=== PATIENT | male | born 1985 | race African-American/Black ===

== ENCOUNTER 2022-01-11 09:52 | Inpatient (IN) | payer OTHER ==
[2022-01-11] MEDS ORDERED: ACETAMINOPHEN 500 MG TABLET (FP) PO ONE (10:41)
[2022-01-11] MEDS ORDERED: ACETAMINOPHEN 325 MG TABLET (FP) ONE (11:00)
[2022-01-11] MEDS ORDERED: ASPIRIN 81 MG CHEWABLE TABLETS PO ONE (11:09)
[2022-01-11] MEDS ORDERED: HYDROCHLOROTHIAZIDE 25 MG TABLET (FP) PO ONE (11:26)
[2022-01-11 11:30] LABS: HEMATOCRIT 40.4 % (35.4-49); HEMOGLOBIN 13.5 GM/dL (11.7-16.9); LYMPH % 40.1 % (8-40); MCH 28.6 pg (25.7-33.7); MCHC 33.3 g/dl (32.0-35.9); MEAN CELL VOLUME 85.7 fl (80-96); MEAN PLT VOLUME 8.8 fl (7.5-11.1); MONO % 3.8 % (3.8-10.2); NEUT % 53.1 % (42.8-82.8); PLATELET COUNT 218 10^3/uL (134-434); RBC 4.71 M/mm3 (4.00-5.60); RDW 14.6 % (11.9-15.9); WHITE BLOOD COUNT 4.6 K/mm3 (4.0-10.0)
[2022-01-11] MEDS ORDERED: HYDROCHLOROTHIAZIDE 25 MG TABLET (FP) ONE (11:31)
[2022-01-11] MEDS ORDERED: ASPIRIN 81 MG CHEWABLE TABLETS ONE ×2 (11:35→11:36)
[2022-01-11 11:47] LABS: CHLORIDE 106 mmol/L (98-107); SODIUM 140 mmol/L (136-145)
[2022-01-11 11:48] LABS: CALCIUM 8.8 mg/dL (8.5-10.1)
[2022-01-11 11:49] LABS: ANION GAP 4 MMOL/L (8-16); BLOOD UREA NITROGEN 23.2 mg/dL (7-18); CO2 30 mmol/L (21-32); GLUCOSE,RANDOM 109 mg/dL (74-106)
[2022-01-11 11:52] LABS: CREATININE 1.7 mg/dL (0.55-1.3); SGOT/AST 43 U/L (15-37); SGPT/ALT 81 U/L (13-61)
[2022-01-11 11:54] LABS: BILIRUBIN,TOTAL 0.5 mg/dL (0.2-1); TOT PROT 7.3 g/dl (6.4-8.2)
[2022-01-11 11:55] LABS: ALK PHOS 76 U/L (45-117)
[2022-01-11] MEDS ORDERED: NITROGLYCERIN SUBLINGUAL 1/150 0.4 MG TAB SL ONE (12:05)
[2022-01-11] MEDS ORDERED: NITROGLYCERIN SUBLINGUAL 1/150 0.4 MG TAB ONE (12:16)
[2022-01-11] MEDS ORDERED: SODIUM CHLORIDE 0.9% 500 ML INFUS.BAG IV ONE (12:25)
[2022-01-11] MEDS ORDERED: HEPARIN NA (PORCINE) 5,000 UNITS/ML 1ML VIAL IVPUSH ONE (12:29)
[2022-01-11] MEDS ORDERED: HEPARIN NA (PORCINE) 5,000 UNITS/ML 1ML VIAL ONE (12:38)
[2022-01-11] MEDS ORDERED: HEPARIN INFUSION - 25,000 UNITS/500 ML INFUS.BAG IVPB ONE (12:38)
[2022-01-11] MEDS ORDERED: HEPARIN NA (PORCINE) 5,000 UNITS/ML 1ML VIAL IVPUSH PRN ×2 (12:45)
[2022-01-11 12:56] LABS: CHOLESTEROL 172 mg/dL (50-200); TRIGLYCERIDES 83 mg/dL (0-150)
[2022-01-11 12:57] LABS: LDL CHOLESTEROL (ONLY SJRH) 112 mg/dL (5-100)
[2022-01-11] MEDS: HEPARIN INFUSION - 25,000 UNITS/500 ML INFUS.BAG IVPB SCH (12:57)
[2022-01-11 12:59] LABS: HDL CHOLESTEROL 52 mg/dL (40-60)
[2022-01-11 13:00] LABS: N-TERMINAL BNP 5734.3 pg/ml (5-125)
[2022-01-11] MEDS ORDERED: NITROGLYCERIN 2% OINTMENT - 1GM PACKET TD ONE ×2 (13:12→13:13)
[2022-01-11 13:26] LABS: INR 1.01 (0.83-1.09); PROTHROMBIN TIME (PATIENT) 11.6 SEC (9.7-13.0)
[2022-01-11 13:29] LABS: ACTIVATED PTT 37.1 SECONDS (25.2-36.5)
[2022-01-11] MEDS ORDERED: LABETALOL HCL 5 MG/1 ML (100MG/20 ML VIAL) IVPUSH ONE ×2 (13:59→23:54)
[2022-01-11] MEDS ORDERED: CLOPIDOGREL BISULFATE 300 MG TABLET PO ONE (14:10)
[2022-01-11] MEDS ORDERED: CLOPIDOGREL BISULFATE 300 MG TABLET ONE (14:25)
[2022-01-11] MEDS ORDERED: hydrALAZINE HCL 25 MG TABLET (FP) ONE (14:25)
[2022-01-11] MEDS: ISOSORBIDE DINITRATE 10 MG TABLET PO SCH ×2 (14:33→19:10)
[2022-01-11] MEDS: hydrALAZINE HCL 25 MG TABLET (FP) PO SCH ×2 (14:34→21:18)
[2022-01-11] MEDS: NICOTINE 14 MG/24 HOURS TOPICAL PATCH TD SCH (18:51)
[2022-01-11] MEDS: SACUBITRIL/VALSARTAN 24 MG-26 MG TABLET PO SCH ×2 (18:53→21:18)
[2022-01-11 20:49] VITALS: BMI 27.1
[2022-01-11 21:12] LABS: EPI CELLS 5 /uL (0-25.1); HYALINE CASTS 1 /uL (0-3.1); PH,URINE 6.5 (5.0-8.0); URINE APPEARANCE CLEAR; URINE BACTERIA 59 /uL (0-1359); URINE BILIRUBIN NEGATIVE (NEGATIVE); URINE COLOR YELLOW; URINE GLUCOSE (UA) NEGATIVE (NEGATIVE); URINE KETONE NEGATIVE (NEGATIVE); URINE LEUK ESTERASE NEGATIVE (NEGATIVE); URINE NITRITE NEGATIVE (NEGATIVE); URINE PROTEIN 1+ (NEGATIVE); URINE RBC 4 /uL (0-23.9); URINE UROBILINOGEN 0.2 mg/dL (0.2-1.0); URINE WBC 4 /uL (0-25.8)
[2022-01-12] MEDS: hydrALAZINE HCL 25 MG TABLET (FP) PO SCH ×3 (05:45→21:25)
[2022-01-12 07:35] LABS: BASO % 0.8 % (0-2.0); EOS % 2.6 % (0-4.5); HEMATOCRIT 42.4 % (35.4-49); HEMOGLOBIN 14.3 GM/dL (11.7-16.9); LYMPH % 47.4 % (8-40); MCH 28.7 pg (25.7-33.7); MCHC 33.7 g/dl (32.0-35.9); MEAN PLT VOLUME 9.1 fl (7.5-11.1); MONO % 4.6 % (3.8-10.2); NEUT % 44.6 % (42.8-82.8); PLATELET COUNT 213 10^3/uL (134-434); RBC 4.98 M/mm3 (4.00-5.60); RDW 14.5 % (11.9-15.9); WHITE BLOOD COUNT 4.1 K/mm3 (4.0-10.0)
[2022-01-12 07:54] LABS: ALBUMIN 3.8 g/dl (3.4-5.0); BLOOD UREA NITROGEN 20.6 mg/dL (7-18); CALCIUM 9.2 mg/dL (8.5-10.1); MAGNESIUM 2.1 mg/dL (1.8-2.4)
[2022-01-12 07:57] LABS: CREATININE 1.7 mg/dL (0.55-1.3); PHOSPHOROUS 3.7 mg/dL (2.5-4.9)
[2022-01-12 07:59] LABS: BILIRUBIN,TOTAL 1.2 mg/dL (0.2-1); TOT PROT 6.9 g/dl (6.4-8.2)
[2022-01-12] MEDS: HEPARIN INFUSION - 25,000 UNITS/500 ML INFUS.BAG IVPB SCH ×2 (08:11→16:02)
[2022-01-12] MEDS: ISOSORBIDE DINITRATE 10 MG TABLET PO SCH (08:11)
[2022-01-12] MEDS: NICOTINE 14 MG/24 HOURS TOPICAL PATCH TD SCH (10:00)
[2022-01-12] MEDS: SACUBITRIL/VALSARTAN 24 MG-26 MG TABLET PO SCH ×2 (10:00→21:25)
[2022-01-12] MEDS: CLOPIDOGREL BISULFATE 75 MG TABLET (FP) PO SCH (10:00)
[2022-01-12 10:08] LABS: SARS-CoV-2 NAA Not Detected (Not Detected)
[2022-01-12] MEDS ORDERED: LABETALOL HCL 5 MG/1 ML (100MG/20 ML VIAL) IVPUSH PRN (10:41)
[2022-01-12] MEDS: ISOSORBIDE MONONITRATE 30 MG TAB.SR.24H (FP) PO SCH (12:34)
[2022-01-12] MEDS: LABETALOL HCL 5 MG/1 ML (100MG/20 ML VIAL) IVPUSH PRN (12:43)
[2022-01-12] MEDS ORDERED: LABETALOL HCL 5 MG/1 ML (100MG/20 ML VIAL) IVPUSH ONE (15:05)
[2022-01-12] MEDS: CARVEDILOL 6.25 MG TABLET (FP) PO SCH (21:25)
[2022-01-13] MEDS: LABETALOL HCL 5 MG/1 ML (100MG/20 ML VIAL) IVPUSH PRN ×2 (02:19→08:18)
[2022-01-13] MEDS: HEPARIN INFUSION - 25,000 UNITS/500 ML INFUS.BAG IVPB SCH (02:20)
[2022-01-13] MEDS: hydrALAZINE HCL 25 MG TABLET (FP) PO SCH (05:31)
[2022-01-13] MEDS ORDERED: hydrALAZINE HCL 25 MG TABLET (FP) PO SCH (06:51)
[2022-01-13 06:58] LABS: HEMATOCRIT 44.7 % (35.4-49); HEMOGLOBIN 14.8 GM/dL (11.7-16.9); MCH 28.3 pg (25.7-33.7); MCHC 33.1 g/dl (32.0-35.9); MEAN CELL VOLUME 85.6 fl (80-96); MEAN PLT VOLUME 9.3 fl (7.5-11.1); PLATELET COUNT 215 10^3/uL (134-434); RBC 5.22 M/mm3 (4.00-5.60); RDW 14.5 % (11.9-15.9); WHITE BLOOD COUNT 4.7 K/mm3 (4.0-10.0)
[2022-01-13 07:10] LABS: INR 1.15 (0.83-1.09); PROTHROMBIN TIME (PATIENT) 13.3 SEC (9.7-13.0)
[2022-01-13 07:10] LABS: ALBUMIN 3.6 g/dl (3.4-5.0); BLOOD UREA NITROGEN 23.6 mg/dL (7-18); MAGNESIUM 2.2 mg/dL (1.8-2.4)
[2022-01-13 07:11] LABS: CREATININE 1.9 mg/dL (0.55-1.3)
[2022-01-13 07:12] LABS: BILIRUBIN,TOTAL 0.6 mg/dL (0.2-1); TOT PROT 6.6 g/dl (6.4-8.2)
[2022-01-13 07:13] LABS: ACTIVATED PTT 56.9 SECONDS (25.2-36.5)
[2022-01-13] MEDS: CLOPIDOGREL BISULFATE 75 MG TABLET (FP) PO SCH (09:06)
[2022-01-13] MEDS: CARVEDILOL 6.25 MG TABLET (FP) PO SCH (09:06)
[2022-01-13] MEDS: ISOSORBIDE MONONITRATE 30 MG TAB.SR.24H (FP) PO SCH (09:06)
[2022-01-13] MEDS: SACUBITRIL/VALSARTAN 24 MG-26 MG TABLET PO SCH (09:07)
[2022-01-13] MEDS: NICOTINE 14 MG/24 HOURS TOPICAL PATCH TD SCH ×2 (09:07→09:08)
[2022-01-13] MEDS ORDERED: hydrALAZINE HCL 25 MG TABLET (FP) PO ONE ×2 (09:10→10:22)
[2022-01-13 09:19] VITALS: BP 182/102; PULSE 64
[2022-01-13 09:22] VITALS: TEMP 97.8
[2022-01-13] MEDS ORDERED: CARVEDILOL 12.5 MG TABLET (FP) PO SCH (10:09)
[2022-01-13] MEDS ORDERED: CARVEDILOL 6.25 MG TABLET (FP) PO ONE (10:22)
== END 2022-01-13 10:54 | disposition left against medical advice (07) | DRG 190 ==
LOC: JER 09:52 → JERBED 12:08 → J4W 20:19
PROVIDERS: ADMIT Internal Medicine; ATTEND Internal Medicine
DX: I21.4 Non-ST elevation (NSTEMI) myocardial infarction (principal); N17.9 Acute kidney failure, unspecified; I16.1 Hypertensive emergency; R73.03 Prediabetes; I11.0 Hypertensive heart disease with heart failure; I50.22 Chronic systolic (congestive) heart failure; E85.9 Amyloidosis, unspecified; Z91.19 Patient's noncompliance with other medical treatment and regimen; R80.9 Proteinuria, unspecified; I24.8 Other forms of acute ischemic heart disease; I27.20 Pulmonary hypertension, unspecified; E85.4 Organ-limited amyloidosis; J99 Respiratory disorders in diseases classified elsewhere
CPT/HCPCS: 36415; 71046-TC-FY; 76775-TC; 80053; 80061; 81003; 82550; 82553; 82570; 83036; 83735; 83880; 84100; 84156; 84300; 84443; 84484; 84540; 85025; 85027; 85379; 85610; 85730; 93005; 93010; 93306-TC; 93970-TC; 99285-25; C9803; J1644; U0003; U0005

== ENCOUNTER 2022-10-30 09:34 | Inpatient (IN) | payer OTHER ==
[2022-10-30] MEDS: NITROGLYCERIN 25MG/D5W 250ML 25 MG/250 ML ML IVPB SCH ×4 (09:45→22:34)
[2022-10-30] MEDS ORDERED: NITROGLYCERIN 2% OINTMENT - 1GM PACKET TD ONE (09:54)
[2022-10-30 10:05] LABS: BASO % 0.4 % (0-2.0); EOS % 0.1 % (0-4.5); HEMATOCRIT 43.5 % (35.4-49); HEMOGLOBIN 14.2 GM/dL (11.7-16.9); MCH 27.6 pg (25.7-33.7); MCHC 32.7 g/dl (32.0-35.9); MEAN CELL VOLUME 84.6 fl (80-96); MEAN PLT VOLUME 9.3 fl (7.5-11.1); MONO % 3.1 % (3.8-10.2); NEUT % 87.4 % (42.8-82.8); PLATELET COUNT 196 10^3/uL (134-434); RBC 5.14 M/mm3 (4.00-5.60); RDW 14.4 % (11.9-15.9); WHITE BLOOD COUNT 6.7 K/mm3 (4.0-10.0)
[2022-10-30 10:13] LABS: INR 1.34 (0.83-1.09); PROTHROMBIN TIME (PATIENT) 15.4 SEC (9.7-13.0)
[2022-10-30 10:15] LABS: ACTIVATED PTT 33.9 SECONDS (25.2-36.5)
[2022-10-30 10:24] LABS: CHLORIDE 102 mmol/L (98-107); SODIUM 136 mmol/L (136-145)
[2022-10-30 10:26] LABS: CALCIUM 9.3 mg/dL (8.5-10.1)
[2022-10-30 10:27] LABS: ALBUMIN 4.2 g/dl (3.4-5.0); ANION GAP 12 MMOL/L (8-16); BLOOD UREA NITROGEN 22.7 mg/dL (7-18); CO2 23 mmol/L (21-32); GLUCOSE,RANDOM 145 mg/dL (74-106); MAGNESIUM 1.9 mg/dL (1.8-2.4)
[2022-10-30 10:30] LABS: CREATININE 2.3 mg/dL (0.55-1.3); SGOT/AST 23 U/L (15-37); SGPT/ALT 33 U/L (13-61)
[2022-10-30 10:32] LABS: TOT PROT 7.9 g/dl (6.4-8.2)
[2022-10-30 10:33] LABS: ALK PHOS 72 U/L (45-117)
[2022-10-30 10:35] LABS: N-TERMINAL BNP 32789.6 pg/ml (5-125)
[2022-10-30] MEDS ORDERED: NITROGLYCERIN 25MG/D5W 250ML 25 MG/250 ML ML IVPB ONE (12:02)
[2022-10-30] MEDS ORDERED: ACETAMINOPHEN 325 MG TABLET (FP) PO PRN (12:49)
[2022-10-30 12:50] LABS: PHENCYCLIDINE,URINE NEGATIVE (NEGATIVE)
[2022-10-30 12:51] LABS: COCAINE, UR NEGATIVE (NEGATIVE); OPIATES, URI NEGATIVE (NEGATIVE); URINE BARBITURATES NEGATIVE (NEGATIVE)
[2022-10-30 12:59] LABS: METHADONE, UR NEGATIVE (NEGATIVE); URINE AMPHETAMINES POSITIVE (NEGATIVE); URINE BENZODIAZEPINES NEGATIVE (NEGATIVE)
[2022-10-30] MEDS ORDERED: AZITHROMYCIN IVPB 500 MG/250 ML BAG IVPB ONE (13:00)
[2022-10-30] MEDS ORDERED: CEFTRIAXONE 1 GM in DEXTROSE 5%-WATER - 50 ML IVPB ONE (13:00)
[2022-10-30] MEDS ORDERED: VANCOMYCIN 1 GM/200 ML PREMIX BAG (RESTRICTED TO ID ONLY) IVPB ONE (13:14)
[2022-10-30 13:20] VITALS: BMI 25.0
[2022-10-30] MEDS ORDERED: OSELTAMIVIR PHOSPHATE 75 MG CAPSULE PO ONE (14:15)
[2022-10-30] MEDS ORDERED: OSELTAMIVIR PHOSPHATE 45 MG CAPSULE PO SCH ×2 (15:00→22:00)
[2022-10-30] MEDS ORDERED: ALBUTEROL SO4 2.5/IPRATROPIUM 0.5 INH SOL 3 ML VIAL.NEB. NEB ONE (15:19)
[2022-10-30] MEDS ORDERED: ONDANSETRON 4 MG/2 ML VIAL IVPUSH PRN (16:35)
[2022-10-30] MEDS ORDERED: hydrALAZINE HCL 25 MG TABLET (FP) PO SCH (20:00)
[2022-10-30] MEDS ORDERED: CARVEDILOL 12.5 MG TABLET (FP) PO SCH (20:00)
[2022-10-30] MEDS: HEPARIN NA (PORCINE) 5,000 UNITS/ML 1ML VIAL SQ SCH (20:42)
[2022-10-30] MEDS: MUPIROCIN 2% TOPICAL OINTMENT FOR DECOLONIZATION NS SCH (21:21)
[2022-10-30] MEDS: CHLORHEXIDINE GLUCONATE 4% CLEANSER FOR DECOLONIZATION TP SCH (21:22)
[2022-10-30] MEDS: SACUBITRIL/VALSARTAN 97 MG-103 MG TABLET PO SCH (21:22)
[2022-10-30] MEDS ORDERED: LABETALOL HCL 5 MG/1 ML (100MG/20 ML VIAL) IVPUSH PRN (22:10)
[2022-10-30] MEDS ORDERED: ALPRAZolam 1 MG TABLET PO PRN (22:10)
[2022-10-30] MEDS: MELATONIN 5 MG TABLETS PO PRN (22:30)
[2022-10-31] MEDS: NITROGLYCERIN 25MG/D5W 250ML 25 MG/250 ML ML IVPB SCH ×3 (01:36→10:07)
[2022-10-31] MEDS: hydrALAZINE HCL 50 MG TABLET (FP) PO SCH ×3 (05:31→21:22)
[2022-10-31 07:11] LABS: HEMATOCRIT 37.8 % (35.4-49); HEMOGLOBIN 12.2 GM/dL (11.7-16.9); MCH 27.4 pg (25.7-33.7); MCHC 32.4 g/dl (32.0-35.9); MEAN CELL VOLUME 84.6 fl (80-96); MEAN PLT VOLUME 9.3 fl (7.5-11.1); PLATELET COUNT 150 10^3/uL (134-434); RBC 4.47 M/mm3 (4.00-5.60); RDW 13.7 % (11.9-15.9); WHITE BLOOD COUNT 3.3 K/mm3 (4.0-10.0)
[2022-10-31 07:31] LABS: CHLORIDE 97 mmol/L (98-107); SODIUM 135 mmol/L (136-145)
[2022-10-31 07:34] LABS: CALCIUM 8.6 mg/dL (8.5-10.1)
[2022-10-31 07:35] LABS: ALBUMIN 3.5 g/dl (3.4-5.0); ANION GAP 12 MMOL/L (8-16); BLOOD UREA NITROGEN 23.9 mg/dL (7-18); CO2 26 mmol/L (21-32); GLUCOSE,RANDOM 141 mg/dL (74-106); MAGNESIUM 1.7 mg/dL (1.8-2.4)
[2022-10-31 07:37] LABS: SGPT/ALT 46 U/L (13-61)
[2022-10-31 07:38] LABS: SGOT/AST 39 U/L (15-37)
[2022-10-31 07:39] LABS: BILIRUBIN,TOTAL 0.8 mg/dL (0.2-1); TOT PROT 6.5 g/dl (6.4-8.2)
[2022-10-31 07:40] LABS: ALK PHOS 59 U/L (45-117)
[2022-10-31] MEDS: OSELTAMIVIR PHOSPHATE 30 MG CAPSULE PO SCH ×2 (09:06→21:24)
[2022-10-31] MEDS: MUPIROCIN 2% TOPICAL OINTMENT FOR DECOLONIZATION NS SCH ×2 (10:07→21:24)
[2022-10-31] MEDS: CARVEDILOL 25 MG TABLET (FP) PO SCH ×2 (10:08→21:23)
[2022-10-31] MEDS: SACUBITRIL/VALSARTAN 97 MG-103 MG TABLET PO SCH ×2 (10:08→21:24)
[2022-10-31] MEDS: CEFTRIAXONE 1 GM in DEXTROSE 5%-WATER - 50 ML IVPB SCH (10:08)
[2022-10-31] MEDS: HEPARIN NA (PORCINE) 5,000 UNITS/ML 1ML VIAL SQ SCH ×2 (10:08→21:25)
[2022-10-31] MEDS: PANTOPRAZOLE 40 MG TABLET PO SCH (10:08)
[2022-10-31] MEDS: ISOSORBIDE MONONITRATE 60 MG TAB.SR.24H (FP) PO SCH (14:14)
[2022-10-31] MEDS: MELATONIN 5 MG TABLETS PO PRN (21:22)
[2022-10-31] MEDS: CHLORHEXIDINE GLUCONATE 4% CLEANSER FOR DECOLONIZATION TP SCH (21:25)
[2022-11-01 01:32] VITALS: TEMP 98.8
[2022-11-01] MEDS: hydrALAZINE HCL 50 MG TABLET (FP) PO SCH (05:46)
[2022-11-01 06:48] VITALS: RESP 16
[2022-11-01] MEDS: CARVEDILOL 25 MG TABLET (FP) PO SCH (09:42)
[2022-11-01] MEDS ORDERED: FUROSEMIDE 40 MG/4 ML INJECTABLE VIAL IVPUSH SCH (10:00)
[2022-11-01] MEDS: OSELTAMIVIR PHOSPHATE 30 MG CAPSULE PO SCH (10:00)
[2022-11-01] MEDS ORDERED: ASPIRIN 81 MG CHEWABLE TABLETS PO SCH (10:00)
[2022-11-01] MEDS: CEFTRIAXONE 1 GM in DEXTROSE 5%-WATER - 50 ML IVPB SCH (10:21)
[2022-11-01] MEDS: MUPIROCIN 2% TOPICAL OINTMENT FOR DECOLONIZATION NS SCH (10:21)
[2022-11-01] MEDS: HEPARIN NA (PORCINE) 5,000 UNITS/ML 1ML VIAL SQ SCH (10:21)
[2022-11-01] MEDS: PANTOPRAZOLE 40 MG TABLET PO SCH (10:21)
[2022-11-01] MEDS: ISOSORBIDE MONONITRATE 60 MG TAB.SR.24H (FP) PO SCH (10:21)
[2022-11-01] MEDS: SACUBITRIL/VALSARTAN 97 MG-103 MG TABLET PO SCH (10:21)
[2022-11-01 11:01] VITALS: BP 177/100; PULSE 56
[2022-11-01] MEDS ORDERED: CARVEDILOL 12.5 MG TABLET (FP) PO SCH (11:03)
[2022-11-01] MEDS ORDERED: hydrALAZINE HCL 50 MG TABLET (FP) PO SCH ×2 (11:07→11:17)
[2022-11-01 11:14] LABS: HEMATOCRIT 45.6 % (35.4-49); HEMOGLOBIN 14.9 GM/dL (11.7-16.9); MCH 27.5 pg (25.7-33.7); MCHC 32.6 g/dl (32.0-35.9); MEAN CELL VOLUME 84.4 fl (80-96); MEAN PLT VOLUME 9.5 fl (7.5-11.1); PLATELET COUNT 185 10^3/uL (134-434); RBC 5.41 M/mm3 (4.00-5.60); RDW 14.1 % (11.9-15.9); WHITE BLOOD COUNT 3.3 K/mm3 (4.0-10.0)
[2022-11-01 11:29] LABS: ALBUMIN 3.4 g/dl (3.4-5.0); BLOOD UREA NITROGEN 24.1 mg/dL (7-18); CALCIUM 8.6 mg/dL (8.5-10.1); MAGNESIUM 2.1 mg/dL (1.8-2.4)
[2022-11-01 11:33] LABS: PHOSPHOROUS 2.6 mg/dL (2.5-4.9)
[2022-11-01 11:35] LABS: BILIRUBIN,TOTAL 0.6 mg/dL (0.2-1); TOT PROT 6.9 g/dl (6.4-8.2)
[2022-11-01] MEDS ORDERED: ATORVASTATIN CA 40 MG TABLET (FP) PO SCH (22:00)
[2022-11-01] MEDS ORDERED: SACUBITRIL/VALSARTAN 24 MG-26 MG TABLET PO SCH (22:00)
== END 2022-11-01 13:20 | disposition left against medical advice (07) | DRG 199 ==
LOC: JER 09:34 → JERBED 12:06 → JICU 13:25
PROVIDERS: ADMIT Internal Medicine Pulmonary Disease; ATTEND Internal Medicine
DX: I16.1 Hypertensive emergency (principal); N17.9 Acute kidney failure, unspecified; J11.00 Influenza due to unidentified influenza virus with unspecified type of pneumonia; I21.4 Non-ST elevation (NSTEMI) myocardial infarction; J18.9 Pneumonia, unspecified organism; E87.1 Hypo-osmolality and hyponatremia; I42.0 Dilated cardiomyopathy; E85.89 Other amyloidosis; I13.0 Hypertensive heart and chronic kidney disease with heart failure and stage 1 through stage 4 chronic kidney disease, or unspecified chronic kidney disease; N18.9 Chronic kidney disease, unspecified; I50.43 Acute on chronic combined systolic (congestive) and diastolic (congestive) heart failure; E87.6 Hypokalemia; F19.10 Other psychoactive substance abuse, uncomplicated; F41.9 Anxiety disorder, unspecified
CPT/HCPCS: 0241U-QW; 36415; 71045-TC-FY; 71275-TC; 74174-TC; 80053; 80307; 82550; 82553; 82570; 82962; 83735; 83880; 84100; 84156; 84300; 84439; 84443; 84484; 85025; 85027; 85379; 85610; 85730; 87899; 93005; 93010; 99291; 99292; J1644; Q9967

== ENCOUNTER 2023-11-22 17:15 | Inpatient (IN) | payer OTHER ==
[2023-11-22] MEDS: NITROGLYCERIN 25MG/D5W 250ML 25 MG/250 ML ML IVPB SCH (18:24)
[2023-11-22 18:47] LABS: BASO % 0.8 % (0-2.0); EOS % 2.4 % (0-4.5); HEMATOCRIT 40.5 % (35.4-49); HEMOGLOBIN 13.3 GM/dL (11.7-16.9); LYMPH % 37.9 % (8-40); MCH 28.3 pg (25.7-33.7); MCHC 32.8 g/dl (32.0-35.9); MEAN CELL VOLUME 86.5 fl (80-96); MEAN PLT VOLUME 8.8 fl (7.5-11.1); NEUT % 53.9 % (42.8-82.8); PLATELET COUNT 270 10^3/uL (134-434); RBC 4.68 M/mm3 (4.00-5.60); RDW 15.3 % (11.9-15.9)
[2023-11-22 18:56] LABS: INR 1.2 (0.83-1.09); PROTHROMBIN TIME (PATIENT) 13.9 SEC (9.7-13.0)
[2023-11-22 19:00] LABS: POTASSIUM 4.8 mmol/L (3.5-5.1)
[2023-11-22 19:02] LABS: CALCIUM 8.2 mg/dL (8.5-10.1)
[2023-11-22 19:03] LABS: ALBUMIN 3.1 g/dl (3.4-5.0); BLOOD UREA NITROGEN 38.1 mg/dL (7-18); MAGNESIUM 2.2 mg/dL (1.8-2.4)
[2023-11-22 19:06] LABS: CREATININE 2.5 mg/dL (0.55-1.3)
[2023-11-22 19:07] LABS: BILIRUBIN,TOTAL 0.5 mg/dL (0.2-1)
[2023-11-22] MEDS ORDERED: CARVEDILOL 12.5 MG TABLET (FP) PO ONE (19:22)
[2023-11-22] MEDS ORDERED: hydrALAZINE HCL 50 MG TABLET (FP) PO ONE (19:22)
[2023-11-22] MEDS ORDERED: ASPIRIN 81 MG CHEWABLE TABLETS PO ONE (19:36)
[2023-11-22] MEDS ORDERED: FUROSEMIDE 40 MG/4 ML INJECTABLE VIAL IVPUSH ONE (19:37)
[2023-11-22] MEDS ORDERED: FUROSEMIDE 40 MG/4 ML INJECTABLE VIAL ONE (19:57)
[2023-11-22] MEDS ORDERED: CARVEDILOL 12.5 MG TABLET (FP) ONE (19:57)
[2023-11-22] MEDS ORDERED: ASPIRIN 81 MG CHEWABLE TABLETS ONE (19:57)
[2023-11-22] MEDS ORDERED: hydrALAZINE HCL 50 MG TABLET (FP) ONE (19:57)
[2023-11-22] MEDS ORDERED: hydrALAZINE HCL 25 MG TABLET (FP) PO SCH (23:15)
[2023-11-23] MEDS: HEPARIN NA (PORCINE) 5,000 UNITS/ML 1ML VIAL SQ SCH ×4 (00:43→21:13)
[2023-11-23 00:54] LABS: EPI CELLS 1 /uL (0-25.1); HYALINE CASTS 0 /uL (0-3.1); PH,URINE 6.5 (5.0-8.0); URINE APPEARANCE CLEAR; URINE BACTERIA 0 /uL (0-1359); URINE BILIRUBIN NEGATIVE (NEGATIVE); URINE COLOR YELLOW; URINE GLUCOSE (UA) TRACE (NEGATIVE); URINE KETONE NEGATIVE (NEGATIVE); URINE LEUK ESTERASE NEGATIVE (NEGATIVE); URINE NITRITE NEGATIVE (NEGATIVE); URINE PROTEIN 1+ (NEGATIVE); URINE RBC 11 /uL (0-23.9); URINE WBC 1 /uL (0-25.8)
[2023-11-23 01:15] LABS: POTASSIUM 3.7 mmol/L (3.5-5.1)
[2023-11-23 01:17] LABS: CALCIUM 8.6 mg/dL (8.5-10.1)
[2023-11-23 01:18] LABS: ALBUMIN 3.3 g/dl (3.4-5.0); BLOOD UREA NITROGEN 38.7 mg/dL (7-18); MAGNESIUM 1.7 mg/dL (1.8-2.4)
[2023-11-23 01:21] LABS: CREATININE 2.6 mg/dL (0.55-1.3); PHOSPHOROUS 3.8 mg/dL (2.5-4.9)
[2023-11-23 01:23] LABS: BILIRUBIN,TOTAL 0.5 mg/dL (0.2-1); TOT PROT 5.8 g/dl (6.4-8.2)
[2023-11-23] MEDS: MUPIROCIN 2% TOPICAL OINTMENT FOR DECOLONIZATION NS SCH ×3 (01:42→21:14)
[2023-11-23] MEDS: hydrALAZINE HCL 25 MG TABLET (FP) PO SCH ×4 (01:43→21:14)
[2023-11-23] MEDS ORDERED: MAGNESIUM SULFATE IN WATER 2 GM/50 ML IVPB IVPB ONE (06:53)
[2023-11-23 07:01] LABS: BASO % 0.7 % (0-2.0); HEMATOCRIT 33.6 % (35.4-49); HEMOGLOBIN 11.3 GM/dL (11.7-16.9); LYMPH % 44.7 % (8-40); MCH 28.7 pg (25.7-33.7); MCHC 33.5 g/dl (32.0-35.9); MEAN CELL VOLUME 85.7 fl (80-96); MEAN PLT VOLUME 8.7 fl (7.5-11.1); MONO % 5.8 % (3.8-10.2); NEUT % 45.8 % (42.8-82.8); PLATELET COUNT 231 10^3/uL (134-434); RBC 3.93 M/mm3 (4.00-5.60); RDW 14.7 % (11.9-15.9); WHITE BLOOD COUNT 4.4 K/mm3 (4.0-10.0)
[2023-11-23 07:14] LABS: POTASSIUM 3.6 mmol/L (3.5-5.1)
[2023-11-23 07:19] LABS: ALBUMIN 2.9 g/dl (3.4-5.0); BLOOD UREA NITROGEN 35.2 mg/dL (7-18); CALCIUM 7.9 mg/dL (8.5-10.1)
[2023-11-23 07:21] LABS: CREATININE 2.3 mg/dL (0.55-1.3)
[2023-11-23 07:24] LABS: BILIRUBIN,TOTAL 0.5 mg/dL (0.2-1); TOT PROT 5.4 g/dl (6.4-8.2)
[2023-11-23 07:27] LABS: N-TERMINAL BNP 10460.4 pg/ml (5-125)
[2023-11-23] MEDS: ISOSORBIDE MONONITRATE 30 MG TAB.SR.24H (FP) PO SCH ×2 (08:21→09:44)
[2023-11-23] MEDS: CARVEDILOL 25 MG TABLET (FP) PO SCH ×3 (08:21→21:14)
[2023-11-23] MEDS: ASPIRIN COATED 81 MG TABLET.EC PO SCH (09:51)
[2023-11-23] MEDS ORDERED: CARVEDILOL 12.5 MG TABLET (FP) PO SCH (10:00)
[2023-11-23] MEDS ORDERED: ISOSORBIDE MONONITRATE 60 MG TAB.SR.24H (FP) PO SCH (10:00)
[2023-11-23] MEDS ORDERED: FUROSEMIDE 40 MG/4 ML INJECTABLE VIAL IVPUSH ONE (10:10)
[2023-11-23] MEDS ORDERED: FUROSEMIDE 40 MG/4 ML INJECTABLE VIAL ONE (10:29)
[2023-11-23] MEDS: ATORVASTATIN CA 80 MG TABLET (FP) PO SCH (21:14)
[2023-11-23] MEDS: NITROGLYCERIN 25MG/D5W 250ML 25 MG/250 ML ML IVPB SCH (21:14)
[2023-11-23] MEDS: CHLORHEXIDINE GLUCONATE 4% CLEANSER FOR DECOLONIZATION TP SCH (21:15)
[2023-11-23] MEDS: ACETAMINOPHEN 325 MG TABLET (FP) PO PRN (22:16)
[2023-11-23] MEDS: MELATONIN 5 MG TABLETS PO SCH (22:55)
[2023-11-24] MEDS: HEPARIN NA (PORCINE) 5,000 UNITS/ML 1ML VIAL SQ SCH ×4 (06:00→22:08)
[2023-11-24] MEDS: hydrALAZINE HCL 25 MG TABLET (FP) PO SCH ×3 (06:00→22:07)
[2023-11-24 07:12] LABS: BASO % 0.4 % (0-2.0); EOS % 1.9 % (0-4.5); HEMATOCRIT 32.9 % (35.4-49); HEMOGLOBIN 10.9 GM/dL (11.7-16.9); LYMPH % 28.6 % (8-40); MCH 28.4 pg (25.7-33.7); MCHC 33.3 g/dl (32.0-35.9); MEAN CELL VOLUME 85.4 fl (80-96); MEAN PLT VOLUME 8.6 fl (7.5-11.1); NEUT % 62.1 % (42.8-82.8); PLATELET COUNT 231 10^3/uL (134-434); RBC 3.85 M/mm3 (4.00-5.60); RDW 14.9 % (11.9-15.9); WHITE BLOOD COUNT 5.5 K/mm3 (4.0-10.0)
[2023-11-24 07:26] LABS: POTASSIUM 3.7 mmol/L (3.5-5.1)
[2023-11-24 07:28] LABS: ALBUMIN 2.8 g/dl (3.4-5.0); BLOOD UREA NITROGEN 31.5 mg/dL (7-18); CALCIUM 8.2 mg/dL (8.5-10.1); MAGNESIUM 2.2 mg/dL (1.8-2.4)
[2023-11-24 07:31] LABS: CREATININE 2.3 mg/dL (0.55-1.3)
[2023-11-24 07:32] LABS: PHOSPHOROUS 3.5 mg/dL (2.5-4.9)
[2023-11-24 07:33] LABS: BILIRUBIN,TOTAL 0.4 mg/dL (0.2-1); TOT PROT 5.2 g/dl (6.4-8.2)
[2023-11-24] MEDS: ISOSORBIDE MONONITRATE 30 MG TAB.SR.24H (FP) PO SCH (09:22)
[2023-11-24] MEDS: ASPIRIN COATED 81 MG TABLET.EC PO SCH (09:22)
[2023-11-24] MEDS: CARVEDILOL 25 MG TABLET (FP) PO SCH ×2 (09:22→22:08)
[2023-11-24] MEDS: MUPIROCIN 2% TOPICAL OINTMENT FOR DECOLONIZATION NS SCH ×2 (09:23→22:07)
[2023-11-24] MEDS: NITROGLYCERIN 25MG/D5W 250ML 25 MG/250 ML ML IVPB SCH ×2 (09:49→21:50)
[2023-11-24] MEDS: SACUBITRIL/VALSARTAN 24 MG-26 MG TABLET PO SCH ×2 (14:27→22:08)
[2023-11-24 14:39] VITALS: BMI 26.4
[2023-11-24] MEDS ORDERED: hydrALAZINE HCL 20 MG/ML VIAL IVPUSH ONE (21:13)
[2023-11-24] MEDS ORDERED: MELATONIN 5 MG TABLETS PO SCH (22:00)
[2023-11-24] MEDS: ATORVASTATIN CA 80 MG TABLET (FP) PO SCH (22:08)
[2023-11-24] MEDS: CHLORHEXIDINE GLUCONATE 4% CLEANSER FOR DECOLONIZATION TP SCH (22:08)
[2023-11-24] MEDS: MELATONIN 5 MG TABLETS PO SCH (22:08)
[2023-11-24] MEDS ORDERED: hydrALAZINE HCL 50 MG TABLET (FP) PO SCH (22:28)
[2023-11-25] MEDS: NITROGLYCERIN 25MG/D5W 250ML 25 MG/250 ML ML IVPB SCH ×2 (02:15→05:36)
[2023-11-25] MEDS: ACETAMINOPHEN 325 MG TABLET (FP) PO PRN (02:34)
[2023-11-25] MEDS: HEPARIN NA (PORCINE) 5,000 UNITS/ML 1ML VIAL SQ SCH (05:36)
[2023-11-25 07:29] LABS: BASO % 0.7 % (0-2.0); EOS % 1.2 % (0-4.5); HEMATOCRIT 33.1 % (35.4-49); LYMPH % 26.4 % (8-40); MCH 28.5 pg (25.7-33.7); MCHC 33.2 g/dl (32.0-35.9); MEAN CELL VOLUME 85.9 fl (80-96); MEAN PLT VOLUME 8.8 fl (7.5-11.1); MONO % 7.4 % (3.8-10.2); NEUT % 64.3 % (42.8-82.8); PLATELET COUNT 237 10^3/uL (134-434); RBC 3.86 M/mm3 (4.00-5.60); WHITE BLOOD COUNT 5.4 K/mm3 (4.0-10.0)
[2023-11-25 07:47] LABS: POTASSIUM 4.1 mmol/L (3.5-5.1)
[2023-11-25 07:55] LABS: ALBUMIN 2.8 g/dl (3.4-5.0); BLOOD UREA NITROGEN 24.6 mg/dL (7-18); PHOSPHOROUS 2.8 mg/dL (2.5-4.9)
[2023-11-25 07:57] LABS: BILIRUBIN,TOTAL 0.5 mg/dL (0.2-1); TOT PROT 5.5 g/dl (6.4-8.2)
[2023-11-25 07:58] LABS: CALCIUM 8.5 mg/dL (8.5-10.1); CREATININE 2.1 mg/dL (0.55-1.3); MAGNESIUM 2.3 mg/dL (1.8-2.4)
[2023-11-25] MEDS ORDERED: hydrALAZINE HCL 20 MG/ML VIAL IVPUSH PRN (08:35)
[2023-11-25] MEDS ORDERED: FUROSEMIDE 40 MG/4 ML INJECTABLE VIAL IVPUSH ONE (08:45)
[2023-11-25] MEDS ORDERED: ALPRAZolam 0.25 MG TABLET PO PRN (09:00)
[2023-11-25] MEDS: ASPIRIN COATED 81 MG TABLET.EC PO SCH (09:03)
[2023-11-25] MEDS: SACUBITRIL/VALSARTAN 24 MG-26 MG TABLET PO SCH (09:03)
[2023-11-25] MEDS: ISOSORBIDE MONONITRATE 30 MG TAB.SR.24H (FP) PO SCH (09:03)
[2023-11-25] MEDS: CARVEDILOL 25 MG TABLET (FP) PO SCH (09:03)
[2023-11-25] MEDS: MUPIROCIN 2% TOPICAL OINTMENT FOR DECOLONIZATION NS SCH (09:06)
[2023-11-25 10:22] VITALS: TEMP 97.3
[2023-11-25 11:10] VITALS: BP 179/107; PULSE 64; RESP 21
[2023-11-25] MEDS ORDERED: FUROSEMIDE 40 MG/4 ML INJECTABLE VIAL IVPUSH SCH (14:00)
== END 2023-11-25 11:06 | disposition left against medical advice (07) | DRG 199 ==
LOC: JER 17:15 → JERBED 22:06 → JICU 11-23 00:15
PROVIDERS: ADMIT Internal Medicine; ATTEND Internal Medicine
DX: I16.1 Hypertensive emergency (principal); I24.89 Other forms of acute ischemic heart disease; I42.8 Other cardiomyopathies; I50.33 Acute on chronic diastolic (congestive) heart failure; N18.9 Chronic kidney disease, unspecified; I13.0 Hypertensive heart and chronic kidney disease with heart failure and stage 1 through stage 4 chronic kidney disease, or unspecified chronic kidney disease
CPT/HCPCS: 0241U-QW; 36415; 71045-TC-FY; 80053; 81003; 82570; 83036; 83735; 83880; 84100; 84300; 84484; 85025; 85610; 93005; 93010; 93306-TC; 99291; 99292; J1644

== ENCOUNTER 2023-12-03 10:20 | Inpatient (IN) | payer OTHER ==
[2023-12-03 12:01] LABS: HEMATOCRIT 37.5 % (35.4-49); HEMOGLOBIN 12.1 GM/dL (11.7-16.9); MCH 27.7 pg (25.7-33.7); MCHC 32.4 g/dl (32.0-35.9); MEAN CELL VOLUME 85.7 fl (80-96); MEAN PLT VOLUME 8.9 fl (7.5-11.1); PLATELET COUNT 204 10^3/uL (134-434); RBC 4.38 M/mm3 (4.00-5.60); RDW 14.4 % (11.9-15.9); WHITE BLOOD COUNT 3.4 K/mm3 (4.0-10.0)
[2023-12-03 12:20] LABS: CHLORIDE 106 mmol/L (98-107); POTASSIUM 4.3 mmol/L (3.5-5.1); SODIUM 138 mmol/L (136-145)
[2023-12-03 12:23] LABS: ANION GAP 5 mmol/L (4-13); CALCIUM 8.4 mg/dL (8.5-10.1); CO2 27 mmol/L (21-32)
[2023-12-03 12:24] LABS: ALBUMIN 3.1 g/dl (3.4-5.0); BLOOD UREA NITROGEN 36.2 mg/dL (7-18); GLUCOSE,RANDOM 138 mg/dL (74-106)
[2023-12-03 12:26] LABS: CREATININE 2.6 mg/dL (0.55-1.3)
[2023-12-03 12:27] LABS: SGOT/AST 109 U/L (15-37); SGPT/ALT 220 U/L (13-61)
[2023-12-03 12:28] LABS: BILIRUBIN,TOTAL 0.5 mg/dL (0.2-1); TOT PROT 5.9 g/dl (6.4-8.2)
[2023-12-03 12:30] LABS: ALK PHOS 85 U/L (45-117)
[2023-12-03 12:31] LABS: N-TERMINAL BNP 17065.3 pg/ml (5-125)
[2023-12-03] MEDS ORDERED: ASPIRIN 81 MG CHEWABLE TABLETS PO ONE (12:45)
[2023-12-03] MEDS ORDERED: ASPIRIN 81 MG CHEWABLE TABLETS ONE (12:54)
[2023-12-03] MEDS ORDERED: ISOSORBIDE MONONITRATE 60 MG TAB.SR.24H (FP) PO ONE (14:24)
[2023-12-03] MEDS ORDERED: hydrALAZINE HCL 50 MG TABLET (FP) ONE (14:25)
[2023-12-03] MEDS ORDERED: FUROSEMIDE 40 MG/4 ML INJECTABLE VIAL ONE (14:25)
[2023-12-03] MEDS ORDERED: FUROSEMIDE 40 MG/4 ML INJECTABLE VIAL IVPUSH ONE (14:30)
[2023-12-03] MEDS: hydrALAZINE HCL 50 MG TABLET (FP) PO SCH ×2 (14:33→21:13)
[2023-12-03] MEDS: ISOSORBIDE MONONITRATE 60 MG TAB.SR.24H (FP) PO SCH (14:34)
[2023-12-03 14:41] LABS: EPI CELLS 15 /uL (0-25.1); HYALINE CASTS 3 /uL (0-3.1); PH,URINE 5.5 (5.0-8.0); URINE APPEARANCE CLEAR; URINE BACTERIA 14 /uL (0-1359); URINE BILIRUBIN NEGATIVE (NEGATIVE); URINE COLOR YELLOW; URINE GLUCOSE (UA) 3+ (NEGATIVE); URINE KETONE NEGATIVE (NEGATIVE); URINE LEUK ESTERASE NEGATIVE (NEGATIVE); URINE NITRITE NEGATIVE (NEGATIVE); URINE PROTEIN 3+ (NEGATIVE); URINE WBC 17 /uL (0-25.8)
[2023-12-03 15:26] LABS: URINE RBC 67.7 /uL (0-23.9)
[2023-12-03] MEDS: ATORVASTATIN CA 80 MG TABLET (FP) PO SCH (21:13)
[2023-12-03] MEDS: CARVEDILOL 25 MG TABLET (FP) PO SCH (21:13)
[2023-12-03] MEDS: HEPARIN NA (PORCINE) 5,000 UNITS/ML 1ML VIAL SQ SCH (21:13)
[2023-12-03] MEDS ORDERED: HEPARIN NA (PORCINE) 5,000 UNITS/ML 1ML VIAL ONE ×2 (21:16→21:22)
[2023-12-03] MEDS ORDERED: ATORVASTATIN CA 80 MG TABLET (FP) ONE (21:16)
[2023-12-03] MEDS ORDERED: CARVEDILOL 25 MG TABLET (FP) ONE (21:16)
[2023-12-03 22:42] VITALS: BMI 26.2
[2023-12-03] MEDS: guaiFENesin/D-METHORPHAN HB 10 ML UNIT-DOSE CUPS PO PRN (23:00)
[2023-12-03] MEDS ORDERED: hydrALAZINE HCL 50 MG TABLET (FP) PO ONE (23:07)
[2023-12-04] MEDS: hydrALAZINE HCL 50 MG TABLET (FP) PO SCH ×3 (06:43→21:15)
[2023-12-04] MEDS: guaiFENesin/D-METHORPHAN HB 10 ML UNIT-DOSE CUPS PO PRN (06:50)
[2023-12-04 07:28] LABS: POTASSIUM 3.9 mmol/L (3.5-5.1)
[2023-12-04 07:32] LABS: CALCIUM 8.3 mg/dL (8.5-10.1)
[2023-12-04 07:33] LABS: MAGNESIUM 1.7 mg/dL (1.8-2.4)
[2023-12-04 07:34] LABS: BLOOD UREA NITROGEN 36.9 mg/dL (7-18)
[2023-12-04 07:36] LABS: CREATININE 2.3 mg/dL (0.55-1.3)
[2023-12-04 07:37] LABS: PHOSPHOROUS 3.4 mg/dL (2.5-4.9)
[2023-12-04 07:38] LABS: TOT PROT 5.7 g/dl (6.4-8.2)
[2023-12-04 07:39] LABS: BILIRUBIN,TOTAL 0.5 mg/dL (0.2-1)
[2023-12-04 08:00] LABS: BASO % 0.6 % (0-2.0); EOS % 0.5 % (0-4.5); HEMATOCRIT 35.6 % (35.4-49); HEMOGLOBIN 11.8 GM/dL (11.7-16.9); LYMPH % 29.8 % (8-40); MCHC 33.2 g/dl (32.0-35.9); MEAN CELL VOLUME 84.3 fl (80-96); MEAN PLT VOLUME 9.3 fl (7.5-11.1); MONO % 10.9 % (3.8-10.2); NEUT % 58.2 % (42.8-82.8); PLATELET COUNT 193 10^3/uL (134-434); RBC 4.22 M/mm3 (4.00-5.60); RDW 14.2 % (11.9-15.9); WHITE BLOOD COUNT 3.4 K/mm3 (4.0-10.0)
[2023-12-04] MEDS ORDERED: MAGNESIUM SULF 50% (8.12 MEQ/2 ML-1 GM VIAL) IVPB ONE (08:15)
[2023-12-04] MEDS: CARVEDILOL 25 MG TABLET (FP) PO SCH ×2 (10:48→21:16)
[2023-12-04] MEDS: HEPARIN NA (PORCINE) 5,000 UNITS/ML 1ML VIAL SQ SCH ×3 (10:48→21:30)
[2023-12-04] MEDS: ASPIRIN COATED 81 MG TABLET.EC PO SCH (10:48)
[2023-12-04] MEDS: ISOSORBIDE MONONITRATE 60 MG TAB.SR.24H (FP) PO SCH (11:03)
[2023-12-04] MEDS: FUROSEMIDE 40 MG/4 ML INJECTABLE VIAL IVPUSH SCH (16:48)
[2023-12-04] MEDS ORDERED: guaiFENesin 200 MG/10 ML 10 ML UNIT-DOSE CUPS PO ONE (20:07)
[2023-12-04] MEDS ORDERED: ACETAMINOPHEN 325 MG TABLET (FP) PO ONE (20:24)
[2023-12-04] MEDS: ATORVASTATIN CA 80 MG TABLET (FP) PO SCH (21:16)
[2023-12-04] MEDS: SACUBITRIL/VALSARTAN 97 MG-103 MG TABLET PO SCH (22:46)
[2023-12-05 06:26] LABS: HEMATOCRIT 37.5 % (35.4-49); HEMOGLOBIN 12.5 GM/dL (11.7-16.9); MCH 28.1 pg (25.7-33.7); MCHC 33.2 g/dl (32.0-35.9); MEAN CELL VOLUME 84.4 fl (80-96); PLATELET COUNT 192 10^3/uL (134-434); RBC 4.45 M/mm3 (4.00-5.60); RDW 14.2 % (11.9-15.9); WHITE BLOOD COUNT 3.4 K/mm3 (4.0-10.0)
[2023-12-05] MEDS: hydrALAZINE HCL 50 MG TABLET (FP) PO SCH ×3 (06:34→21:56)
[2023-12-05 06:54] LABS: POTASSIUM 3.6 mmol/L (3.5-5.1)
[2023-12-05 06:58] LABS: CALCIUM 8.5 mg/dL (8.5-10.1)
[2023-12-05 06:59] LABS: ALBUMIN 2.8 g/dl (3.4-5.0); BLOOD UREA NITROGEN 27.8 mg/dL (7-18); MAGNESIUM 1.9 mg/dL (1.8-2.4)
[2023-12-05 07:01] LABS: CREATININE 2.1 mg/dL (0.55-1.3); PHOSPHOROUS 3.4 mg/dL (2.5-4.9)
[2023-12-05 07:02] LABS: BILIRUBIN,TOTAL 0.6 mg/dL (0.2-1)
[2023-12-05 07:03] LABS: TOT PROT 5.6 g/dl (6.4-8.2)
[2023-12-05] MEDS: HEPARIN NA (PORCINE) 5,000 UNITS/ML 1ML VIAL SQ SCH ×2 (10:00→21:55)
[2023-12-05] MEDS: ISOSORBIDE MONONITRATE 60 MG TAB.SR.24H (FP) PO SCH (10:00)
[2023-12-05] MEDS: CARVEDILOL 25 MG TABLET (FP) PO SCH ×2 (10:00→21:54)
[2023-12-05] MEDS: ASPIRIN COATED 81 MG TABLET.EC PO SCH (10:00)
[2023-12-05] MEDS: SACUBITRIL/VALSARTAN 97 MG-103 MG TABLET PO SCH ×2 (10:00→21:55)
[2023-12-05] MEDS: FUROSEMIDE 40 MG/4 ML INJECTABLE VIAL IVPUSH SCH (10:00)
[2023-12-05] MEDS: ATORVASTATIN CA 80 MG TABLET (FP) PO SCH (21:55)
[2023-12-06] MEDS: hydrALAZINE HCL 50 MG TABLET (FP) PO SCH ×2 (05:27→14:00)
[2023-12-06 07:11] LABS: POTASSIUM 3.7 mmol/L (3.5-5.1)
[2023-12-06 07:15] LABS: ALBUMIN 2.8 g/dl (3.4-5.0); CALCIUM 8.7 mg/dL (8.5-10.1); MAGNESIUM 1.8 mg/dL (1.8-2.4)
[2023-12-06 07:16] LABS: HEMATOCRIT 39.9 % (35.4-49); HEMOGLOBIN 13.4 GM/dL (11.7-16.9); MCH 28.2 pg (25.7-33.7); MCHC 33.7 g/dl (32.0-35.9); MEAN CELL VOLUME 83.8 fl (80-96); MEAN PLT VOLUME 9.2 fl (7.5-11.1); PLATELET COUNT 206 10^3/uL (134-434); RBC 4.76 M/mm3 (4.00-5.60); RDW 13.8 % (11.9-15.9); WHITE BLOOD COUNT 5.1 K/mm3 (4.0-10.0)
[2023-12-06 07:20] LABS: BILIRUBIN,TOTAL 0.6 mg/dL (0.2-1); CREATININE 1.8 mg/dL (0.55-1.3); PHOSPHOROUS 2.9 mg/dL (2.5-4.9); TOT PROT 5.8 g/dl (6.4-8.2)
[2023-12-06] MEDS ORDERED: ISOSORBIDE MONONITRATE 60 MG TAB.SR.24H (FP) PO SCH ×2 (07:53→09:15)
[2023-12-06] MEDS: CARVEDILOL 25 MG TABLET (FP) PO SCH (09:31)
[2023-12-06] MEDS: SACUBITRIL/VALSARTAN 97 MG-103 MG TABLET PO SCH (09:31)
[2023-12-06] MEDS: ASPIRIN COATED 81 MG TABLET.EC PO SCH (09:31)
[2023-12-06] MEDS: HEPARIN NA (PORCINE) 5,000 UNITS/ML 1ML VIAL SQ SCH (09:32)
[2023-12-06] MEDS: FUROSEMIDE 40 MG/4 ML INJECTABLE VIAL IVPUSH SCH (09:32)
[2023-12-06 12:14] VITALS: PULSE 62; TEMP 98
[2023-12-06 18:43] VITALS: BP 136/88; RESP 20
== END 2023-12-06 18:46 | disposition home or self-care (01) | DRG 194 ==
LOC: JER 10:20 → JERBED 13:35 → OBSVTOIN 14:21 → JERBED 14:21 → J2W 22:08
PROVIDERS: ADMIT Internal Medicine; ATTEND Internal Medicine
DX: I13.0 Hypertensive heart and chronic kidney disease with heart failure and stage 1 through stage 4 chronic kidney disease, or unspecified chronic kidney disease (principal); I50.23 Acute on chronic systolic (congestive) heart failure; N18.9 Chronic kidney disease, unspecified; U07.1 COVID-19; I24.89 Other forms of acute ischemic heart disease; F16.10 Hallucinogen abuse, uncomplicated; I16.0 Hypertensive urgency; E83.42 Hypomagnesemia; I42.8 Other cardiomyopathies
CPT/HCPCS: 0241U-QW; 36415; 71045-TC-FY; 80053; 80061; 81003; 82550; 82553; 83036; 83735; 83880; 84100; 84484; 85025; 85027; 93005; 93010; 99285-25; G0378; J1644

== ENCOUNTER 2024-07-22 12:34 | Inpatient (IN) | payer OTHER ==
[2024-07-22] MEDS ORDERED: NITROGLYCERIN 2% OINTMENT - 1GM PACKET TD ONE (13:47)
[2024-07-22] MEDS ORDERED: hydrALAZINE HCL 50 MG TABLET (FP) ONE (13:47)
[2024-07-22] MEDS ORDERED: SACUBITRIL/VALSARTAN 49 MG-51 MG TABLET ONE (13:47)
[2024-07-22] MEDS ORDERED: FUROSEMIDE 40 MG/4 ML INJECTABLE VIAL ONE (13:48)
[2024-07-22 13:53] LABS: BASO % 0.8 % (0-2.0); EOS % 1.1 % (0-4.5); HEMOGLOBIN 12.5 GM/dL (11.7-16.9); MCH 28.3 pg (25.7-33.7); MCHC 32.8 g/dl (32.0-35.9); MEAN CELL VOLUME 86.3 fl (80-96); MONO % 3.5 % (3.8-10.2); NEUT % 66.6 % (42.8-82.8); PLATELET COUNT 203 10^3/uL (134-434); WHITE BLOOD COUNT 5.1 K/mm3 (4.0-10.0)
[2024-07-22] MEDS: hydrALAZINE HCL 50 MG TABLET (FP) PO ONE (14:01)
[2024-07-22] MEDS: FUROSEMIDE 40 MG/4 ML INJECTABLE VIAL IVPUSH ONE (14:01)
[2024-07-22] MEDS: SACUBITRIL/VALSARTAN 97 MG-103 MG TABLET PO ONE (14:02)
[2024-07-22] MEDS: NITROGLYCERIN 50MG/D5W 250ML 50 MG/250 ML ML IVPB SCH (14:02)
[2024-07-22] MEDS: NITROGLYCERIN 2% OINTMENT - 1GM PACKET TD ONE (14:02)
[2024-07-22 14:09] LABS: POTASSIUM 3.8 mmol/L (3.5-5.1)
[2024-07-22 14:12] LABS: ALBUMIN 3.7 g/dl (3.4-5.0); BLOOD UREA NITROGEN 39.9 mg/dL (7-18); CALCIUM 9.3 mg/dL (8.5-10.1)
[2024-07-22 14:16] LABS: CREATININE 2.7 mg/dL (0.55-1.3)
[2024-07-22 14:17] LABS: BILIRUBIN,TOTAL 1.1 mg/dL (0.2-1); TOT PROT 6.2 g/dl (6.4-8.2)
[2024-07-22] MEDS ORDERED: NITROGLYCERIN 25MG/D5W 250ML 25 MG/250 ML ML IVPB ONE (15:19)
[2024-07-22] MEDS ORDERED: SPIRONOLACTONE 25 MG TABLET ONE (15:26)
[2024-07-22] MEDS ORDERED: CARVEDILOL 25 MG TABLET (FP) ONE (15:26)
[2024-07-22] MEDS ORDERED: ASPIRIN 325 MG TABLET ONE (15:26)
[2024-07-22] MEDS: SPIRONOLACTONE 25 MG TABLET PO ONE (15:30)
[2024-07-22] MEDS: ASPIRIN 81 MG CHEWABLE TABLETS PO ONE (15:30)
[2024-07-22] MEDS: CARVEDILOL 25 MG TABLET (FP) PO ONE (15:30)
[2024-07-22] MEDS: NITROGLYCERIN 25MG/D5W 250ML 25 MG/250 ML ML IVPB SCH (15:30)
[2024-07-22] MEDS: ATORVASTATIN CA 80 MG TABLET (FP) PO SCH (21:13)
[2024-07-22] MEDS: CARVEDILOL 25 MG TABLET (FP) PO SCH (21:13)
[2024-07-22] MEDS: HEPARIN NA (PORCINE) 5,000 UNITS/ML 1ML VIAL SQ SCH (21:13)
[2024-07-22] MEDS: hydrALAZINE HCL 50 MG TABLET (FP) PO SCH (21:13)
[2024-07-22] MEDS: CHLORHEXIDINE GLUCONATE 4% CLEANSER FOR DECOLONIZATION TP SCH (21:15)
[2024-07-22] MEDS: MUPIROCIN 2% TOPICAL OINTMENT FOR DECOLONIZATION NS SCH (21:15)
[2024-07-22] MEDS: ACETAMINOPHEN 325 MG TABLET (FP) PO PRN (23:47)
[2024-07-23] MEDS: amLODIPine BESYLATE 10 MG TABLET (FP) PO SCH (07:19)
[2024-07-23 07:55] LABS: BASO % 0.7 % (0-2.0); EOS % 2.2 % (0-4.5); HEMOGLOBIN 11.2 GM/dL (11.7-16.9); LYMPH % 40.5 % (8-40); MCH 28.4 pg (25.7-33.7); MEAN CELL VOLUME 86.2 fl (80-96); MEAN PLT VOLUME 9.7 fl (7.5-11.1); MONO % 5.5 % (3.8-10.2); NEUT % 51.1 % (42.8-82.8); PLATELET COUNT 178 10^3/uL (134-434); RBC 3.95 M/mm3 (4.00-5.60); RDW 15.2 % (11.9-15.9); WHITE BLOOD COUNT 4.5 K/mm3 (4.0-10.0)
[2024-07-23 08:10] LABS: POTASSIUM 3.5 mmol/L (3.5-5.1)
[2024-07-23 08:16] LABS: ALBUMIN 3.3 g/dl (3.4-5.0); BLOOD UREA NITROGEN 41.2 mg/dL (7-18); MAGNESIUM 1.8 mg/dL (1.8-2.4)
[2024-07-23 08:19] LABS: PHOSPHOROUS 3.6 mg/dL (2.5-4.9)
[2024-07-23 08:20] LABS: CREATININE 2.4 mg/dL (0.55-1.3)
[2024-07-23 08:21] LABS: BILIRUBIN,TOTAL 0.8 mg/dL (0.2-1); TOT PROT 5.5 g/dl (6.4-8.2)
[2024-07-23] MEDS: FUROSEMIDE 40 MG/4 ML INJECTABLE VIAL IVPUSH SCH (09:09)
[2024-07-23] MEDS: SPIRONOLACTONE 25 MG TABLET PO SCH (09:10)
[2024-07-23] MEDS: ASPIRIN COATED 81 MG TABLET.EC PO SCH (09:10)
[2024-07-23] MEDS ORDERED: EMPAGLIFLOZIN (JARDIANCE) 10 MG TABLET PO SCH (10:00)
[2024-07-23] MEDS ORDERED: FUROSEMIDE 40 MG TABLET (FP) PO SCH (10:00)
[2024-07-23] MEDS: ISOSORBIDE MONONITRATE 60 MG TAB.SR.24H (FP) PO SCH (12:56)
[2024-07-23 16:41] VITALS: BMI 27.0
[2024-07-23] MEDS ORDERED: ACETAMINOPHEN 325 MG TABLET (FP) PO PRN (18:33)
[2024-07-23] MEDS: CARVEDILOL 25 MG TABLET (FP) PO SCH (21:25)
[2024-07-23] MEDS: ATORVASTATIN CA 80 MG TABLET (FP) PO SCH (21:25)
[2024-07-23] MEDS: hydrALAZINE HCL 50 MG TABLET (FP) PO SCH (21:25)
[2024-07-23] MEDS: HEPARIN NA (PORCINE) 5,000 UNITS/ML 1ML VIAL SQ SCH (21:26)
[2024-07-23] MEDS ORDERED: SACUBITRIL/VALSARTAN 97 MG-103 MG TABLET PO SCH (22:00)
[2024-07-23] MEDS ORDERED: MUPIROCIN 2% TOPICAL OINTMENT FOR DECOLONIZATION NS SCH (22:00)
[2024-07-23] MEDS ORDERED: CHLORHEXIDINE GLUCONATE 4% CLEANSER FOR DECOLONIZATION TP SCH (22:00)
[2024-07-23] MEDS: SACUBITRIL/VALSARTAN 97 MG-103 MG TABLET PO SCH (23:13)
[2024-07-24] MEDS: FUROSEMIDE 40 MG/4 ML INJECTABLE VIAL IVPUSH SCH (09:22)
[2024-07-24] MEDS: ISOSORBIDE MONONITRATE 60 MG TAB.SR.24H (FP) PO SCH (09:23)
[2024-07-24] MEDS: SPIRONOLACTONE 25 MG TABLET PO SCH (09:23)
[2024-07-24] MEDS: amLODIPine BESYLATE 10 MG TABLET (FP) PO SCH (09:23)
[2024-07-24] MEDS: ASPIRIN COATED 81 MG TABLET.EC PO SCH (09:24)
[2024-07-24 15:39] VITALS: RESP 18
[2024-07-25 06:29] VITALS: TEMP 98.1
[2024-07-25 07:02] LABS: HEMATOCRIT 42.4 % (35.4-49); HEMOGLOBIN 13.8 GM/dL (11.7-16.9); MCHC 32.5 g/dl (32.0-35.9); MEAN CELL VOLUME 86.2 fl (80-96); MEAN PLT VOLUME 9.4 fl (7.5-11.1); PLATELET COUNT 214 10^3/uL (134-434); RBC 4.92 M/mm3 (4.00-5.60); RDW 15.8 % (11.9-15.9); WHITE BLOOD COUNT 3.9 K/mm3 (4.0-10.0)
[2024-07-25 07:14] LABS: POTASSIUM 3.7 mmol/L (3.5-5.1)
[2024-07-25 07:16] LABS: CALCIUM 9.1 mg/dL (8.5-10.1)
[2024-07-25 07:17] LABS: ALBUMIN 3.4 g/dl (3.4-5.0); BLOOD UREA NITROGEN 30.1 mg/dL (7-18)
[2024-07-25 07:20] LABS: CREATININE 2.3 mg/dL (0.55-1.3)
[2024-07-25 07:22] LABS: BILIRUBIN,TOTAL 0.8 mg/dL (0.2-1); TOT PROT 6.1 g/dl (6.4-8.2)
[2024-07-25 09:19] VITALS: BP 149/82; PULSE 58
== END 2024-07-25 13:27 | disposition home or self-care (01) | DRG 199 ==
LOC: JER 12:34 → JERBED 15:51 → JICU 16:54 → J4W 07-23 16:34
PROVIDERS: ADMIT Internal Medicine Pulmonary Disease; ATTEND Internal Medicine
DX: I16.1 Hypertensive emergency (principal); I13.0 Hypertensive heart and chronic kidney disease with heart failure and stage 1 through stage 4 chronic kidney disease, or unspecified chronic kidney disease; I50.23 Acute on chronic systolic (congestive) heart failure; I42.8 Other cardiomyopathies; R07.89 Other chest pain; N18.9 Chronic kidney disease, unspecified; I24.89 Other forms of acute ischemic heart disease; F11.10 Opioid abuse, uncomplicated
CPT/HCPCS: 0241U-QW; 36415; 71045-TC-FY; 80053; 82550; 83735; 83880; 84100; 84484; 85025; 85027; 93005; 93010; 93306-TC; 99285-25

== ENCOUNTER 2024-11-24 15:07 | Inpatient (IN) | payer OTHER ==
[2024-11-24 15:17] VITALS: BMI 26.4
[2024-11-24 16:51] LABS: BASO % 0.7 % (0-2.0); EOS % 2.3 % (0-4.5); HEMATOCRIT 37.1 % (35.4-49); HEMOGLOBIN 12.5 GM/dL (11.7-16.9); LYMPH % 35.3 % (8-40); MCH 28.6 pg (25.7-33.7); MCHC 33.7 g/dl (32.0-35.9); MEAN PLT VOLUME 9.9 fl (7.5-11.1); MONO % 5.1 % (3.8-10.2); NEUT % 56.6 % (42.8-82.8); PLATELET COUNT 180 10^3/uL (134-434); RBC 4.37 M/mm3 (4.00-5.60); RDW 15.4 % (11.9-15.9); WHITE BLOOD COUNT 4.9 K/mm3 (4.0-10.0)
[2024-11-24 16:59] LABS: INR 1.11 (0.83-1.09); PROTHROMBIN TIME (PATIENT) 12.7 SEC (9.7-13.0)
[2024-11-24 17:02] LABS: ACTIVATED PTT 35.2 SECONDS (25.2-36.5)
[2024-11-24 17:06] LABS: POTASSIUM 3.8 mmol/L (3.5-5.1)
[2024-11-24 17:14] LABS: CREATININE 2.3 mg/dL (0.55-1.3)
[2024-11-24 17:16] LABS: TOT PROT 7.2 g/dl (6.4-8.2)
[2024-11-24 17:19] LABS: N-TERMINAL BNP 23595.2 pg/ml (5-125)
[2024-11-24] MEDS ORDERED: ISOSORBIDE MONONITRATE 60 MG TAB.SR.24H (FP) PO ONE (17:56)
[2024-11-24] MEDS ORDERED: ASPIRIN 325 MG TABLET ONE (17:56)
[2024-11-24] MEDS ORDERED: FUROSEMIDE 40 MG/4 ML INJECTABLE VIAL ONE (17:56)
[2024-11-24] MEDS: ASPIRIN 325 MG TABLET PO ONE (18:09)
[2024-11-24] MEDS: ISOSORBIDE MONONITRATE 60 MG TAB.SR.24H (FP) PO ONE (18:09)
[2024-11-24] MEDS: FUROSEMIDE 40 MG TABLET (FP) PO ONE (18:09)
[2024-11-24] MEDS ORDERED: LABETALOL HCL 20 MG/4 ML VIAL ONE (18:56)
[2024-11-24] MEDS: LABETALOL HCL 20 MG/4 ML VIAL IVPUSH ONE (18:59)
[2024-11-24] MEDS ORDERED: NITROGLYCERIN SUBLINGUAL 1/150 0.4 MG TAB ONE (20:00)
[2024-11-24] MEDS: NITROGLYCERIN SUBLINGUAL 1/150 0.4 MG TAB SL ONE (20:16)
[2024-11-24] MEDS: NITROGLYCERIN SUBLINGUAL 1/200 0.3 MG BTL SL ONE (20:16)
[2024-11-24] MEDS ORDERED: HEPARIN NA (PORCINE) 5,000 UNITS/ML 1ML VIAL ONE (22:37)
[2024-11-24] MEDS ORDERED: hydrALAZINE HCL 50 MG TABLET (FP) ONE (22:37)
[2024-11-24] MEDS: hydrALAZINE HCL 50 MG TABLET (FP) PO ONE (22:49)
[2024-11-24] MEDS: SACUBITRIL/VALSARTAN 97 MG-103 MG TABLET PO SCH (22:49)
[2024-11-24] MEDS: HEPARIN NA (PORCINE) 5,000 UNITS/ML 1ML VIAL SQ SCH (22:50)
[2024-11-24 23:08] LABS: METHADONE, UR NEGATIVE (NEGATIVE); PHENCYCLIDINE,URINE NEGATIVE (NEGATIVE); URINE BENZODIAZEPINES NEGATIVE (NEGATIVE)
[2024-11-24 23:09] LABS: URINE AMPHETAMINES NEGATIVE (NEGATIVE)
[2024-11-24 23:19] LABS: COCAINE, UR NEGATIVE (NEGATIVE); OPIATES, URI NEGATIVE (NEGATIVE); URINE BARBITURATES NEGATIVE (NEGATIVE)
[2024-11-24] MEDS ORDERED: CARVEDILOL 25 MG TABLET (FP) ONE (23:34)
[2024-11-24] MEDS ORDERED: SPIRONOLACTONE 25 MG TABLET ONE (23:34)
[2024-11-24] MEDS ORDERED: amLODIPine BESYLATE 10 MG TABLET (FP) ONE (23:34)
[2024-11-24] MEDS: amLODIPine BESYLATE 10 MG TABLET (FP) PO ONE (23:43)
[2024-11-24] MEDS: SPIRONOLACTONE 25 MG TABLET PO ONE (23:43)
[2024-11-24] MEDS: CARVEDILOL 25 MG TABLET (FP) PO ONE (23:43)
[2024-11-25] MEDS ORDERED: hydrALAZINE HCL 50 MG TABLET (FP) ONE ×4 (06:17→21:39)
[2024-11-25] MEDS: hydrALAZINE HCL 50 MG TABLET (FP) PO SCH (06:19)
[2024-11-25 08:18] LABS: HEMATOCRIT 35.6 % (35.4-49); HEMOGLOBIN 12.1 GM/dL (11.7-16.9); MCH 28.9 pg (25.7-33.7); MCHC 33.9 g/dl (32.0-35.9); MEAN CELL VOLUME 85.3 fl (80-96); MEAN PLT VOLUME 10.4 fl (7.5-11.1); PLATELET COUNT 162 10^3/uL (134-434); RBC 4.18 M/mm3 (4.00-5.60); RDW 15.5 % (11.9-15.9); WHITE BLOOD COUNT 4.5 K/mm3 (4.0-10.0)
[2024-11-25 08:27] LABS: POTASSIUM 3.5 mmol/L (3.5-5.1)
[2024-11-25 08:33] LABS: ALBUMIN 3.8 g/dl (3.4-5.0)
[2024-11-25 08:35] LABS: MAGNESIUM 1.8 mg/dL (1.8-2.4)
[2024-11-25 08:36] LABS: CALCIUM 8.9 mg/dL (8.5-10.1); CREATININE 2.5 mg/dL (0.55-1.3)
[2024-11-25 08:37] LABS: TOT PROT 6.6 g/dl (6.4-8.2)
[2024-11-25 08:40] LABS: BLOOD UREA NITROGEN 31.4 mg/dL (7-18)
[2024-11-25 08:41] LABS: BILIRUBIN,TOTAL 0.6 mg/dL (0.2-1)
[2024-11-25] MEDS ORDERED: ENOXAPARIN NA (PORCINE) 40 MG/0.4 ML DISP.SYRIN SQ SCH (10:00)
[2024-11-25] MEDS ORDERED: SACUBITRIL/VALSARTAN 97 MG-103 MG TABLET PO SCH (10:00)
[2024-11-25] MEDS ORDERED: ASPIRIN 81 MG CHEWABLE TABLETS ONE (10:07)
[2024-11-25] MEDS ORDERED: amLODIPine BESYLATE 10 MG TABLET (FP) ONE (10:07)
[2024-11-25] MEDS ORDERED: FUROSEMIDE 40 MG TABLET (FP) ONE (10:07)
[2024-11-25] MEDS ORDERED: CARVEDILOL 25 MG TABLET (FP) ONE ×3 (10:08→21:38)
[2024-11-25] MEDS ORDERED: SPIRONOLACTONE 25 MG TABLET ONE (10:08)
[2024-11-25] MEDS: FUROSEMIDE 40 MG TABLET (FP) PO SCH (10:16)
[2024-11-25] MEDS: CARVEDILOL 25 MG TABLET (FP) PO SCH (10:16)
[2024-11-25] MEDS: amLODIPine BESYLATE 10 MG TABLET (FP) PO SCH (10:16)
[2024-11-25] MEDS: ISOSORBIDE MONONITRATE 60 MG TAB.SR.24H (FP) PO SCH (10:16)
[2024-11-25] MEDS: ASPIRIN COATED 81 MG TABLET.EC PO SCH (10:16)
[2024-11-25] MEDS: SPIRONOLACTONE 25 MG TABLET PO SCH (10:16)
[2024-11-25] MEDS ORDERED: CARVEDILOL 3.125 MG TABLET (FP) ONE (21:31)
[2024-11-25] MEDS ORDERED: SACUBITRIL/VALSARTAN 49 MG-51 MG TABLET ONE ×2 (21:31→21:38)
[2024-11-25] MEDS ORDERED: HEPARIN NA (PORCINE) 5,000 UNITS/ML 1ML VIAL ONE (21:32)
[2024-11-25] MEDS: ATORVASTATIN CA 80 MG TABLET (FP) PO SCH (23:01)
[2024-11-26 00:03] VITALS: RESP 18
[2024-11-26 08:58] LABS: POTASSIUM 3.8 mmol/L (3.5-5.1)
[2024-11-26 09:04] LABS: CALCIUM 9.2 mg/dL (8.5-10.1); HEMATOCRIT 41.6 % (35.4-49); HEMOGLOBIN 14.1 GM/dL (11.7-16.9); MCH 28.9 pg (25.7-33.7); MCHC 33.8 g/dl (32.0-35.9); MEAN CELL VOLUME 85.4 fl (80-96); MEAN PLT VOLUME 9.7 fl (7.5-11.1); PLATELET COUNT 187 10^3/uL (134-434); RBC 4.87 M/mm3 (4.00-5.60); RDW 15.6 % (11.9-15.9)
[2024-11-26 09:07] LABS: CREATININE 2.2 mg/dL (0.55-1.3)
[2024-11-26] MEDS: NICOTINE 14 MG/24 HOURS TOPICAL PATCH TD SCH (10:08)
[2024-11-26] MEDS: EMPAGLIFLOZIN (JARDIANCE) 10 MG TABLET PO SCH (10:09)
[2024-11-26] MEDS: POTASSIUM CHLORIDE ORAL LIQUID 20 MEQ/15 ML PO ONE (19:56)
[2024-11-26] MEDS: MAGNESIUM 1GM/D5W 100ML - 100 ML IVPB IVPB ONE (19:56)
[2024-11-27] MEDS: EMPAGLIFLOZIN (JARDIANCE) 10 MG TABLET PO SCH (06:37)
[2024-11-27 08:32] LABS: BLOOD UREA NITROGEN 28.6 mg/dL (7-18); CALCIUM 9.5 mg/dL (8.5-10.1)
[2024-11-27 08:34] LABS: CREATININE 2.2 mg/dL (0.55-1.3)
[2024-11-27 12:38] VITALS: BP 149/90; PULSE 55; TEMP 98.4
== END 2024-11-27 13:45 | disposition home or self-care (01) | DRG 199 ==
LOC: JER 15:07 → JERBED 20:05 → J4S 11-25 22:51
PROVIDERS: ADMIT Internal Medicine; ATTEND Internal Medicine
DX: I16.1 Hypertensive emergency (principal); I42.8 Other cardiomyopathies; I50.22 Chronic systolic (congestive) heart failure; F12.90 Cannabis use, unspecified, uncomplicated; F17.210 Nicotine dependence, cigarettes, uncomplicated; I13.0 Hypertensive heart and chronic kidney disease with heart failure and stage 1 through stage 4 chronic kidney disease, or unspecified chronic kidney disease; N18.32 Chronic kidney disease, stage 3b; R60.0 Localized edema; R50.9 Fever, unspecified; Z91.148 Patient's other noncompliance with medication regimen for other reason
CPT/HCPCS: 36415; 71046-TC-FY; 80048; 80053; 80061; 80307; 83735; 83880; 84100; 84484; 85025; 85027; 85610; 85730; 86850; 86900; 86901; 93005; 93010; 93306-TC; 99285-25; J1644